=== PATIENT | male | born 1995 | race Two or more races ===

== ENCOUNTER 2019-09-25 09:55 | Emergency (ER) | payer BC, OTHER ==
[~2019-09-25] VITALS: Ht 177.8 cm; Wt 67.6 kg
[2019-09-25 10:16] VITALS: BP 130/94
== END 2019-09-25 11:08 | disposition home or self-care (01) ==
LOC: ER 09:55
DX: S86.912A Strain of unspecified muscle(s) and tendon(s) at lower leg level, left leg, initial encounter (principal); X58.XXXA Exposure to other specified factors, initial encounter; Y93.02 Activity, running; Y92.89 Other specified places as the place of occurrence of the external cause; Y99.8 Other external cause status
CPT/HCPCS: 93971

== ENCOUNTER 2020-09-06 02:01 | Emergency (ER) | payer BC ==
[~2020-09-06] VITALS: Ht 177.8 cm; Wt 70.3 kg
[2020-09-06 02:03] VITALS: BP 128/84
[2020-09-06] MEDS ORDERED: LIDOCAINE 1% HCL (LOCAL ANESTH.) INJ 20ML MDV IJ ONE (04:30)
== END 2020-09-06 06:25 | disposition home or self-care (01) ==
LOC: ER 02:01
DX: S11.91XA Laceration without foreign body of unspecified part of neck, initial encounter (principal); Y08.89XA Assault by other specified means, initial encounter; Y93.89 Activity, other specified; Y92.89 Other specified places as the place of occurrence of the external cause; Y99.8 Other external cause status
CPT/HCPCS: 12004; 70360; 99283; J2001; 12002